=== PATIENT | female | born 1960 | race Caucasian/White ===

== ENCOUNTER 2016-07-03 10:26 | Emergency (ER) | payer OTHER, BC ==
[~2016-07-03] VITALS: Ht 154.9 cm; Wt 90.7 kg
[2016-07-03 10:26] VITALS: BP 146/83
[~2016-07-03 10:26] MED LIST: LEVA500T PO; MOBI15TA PO; NORCOTAB PO; ULTR37.52 PO
[2016-07-03] MEDS ORDERED: LEVO25TA5 PO (10:32)
[2016-07-03] MEDS ORDERED: TRAM50TA2 PO (10:32)
[2016-07-03] MEDS ORDERED: NABU50TA PO (10:32)
== END 2016-07-03 11:44 | disposition home or self-care (01) ==
LOC: M ED 11:06
DX: S96.911A Strain of unspecified muscle and tendon at ankle and foot level, right foot, initial encounter (principal); W19.XXXA Unspecified fall, initial encounter; Y92.89 Other specified places as the place of occurrence of the external cause; Y93.89 Activity, other specified; Y99.8 Other external cause status; M54.5 Low back pain; F33.9 Major depressive disorder, recurrent, unspecified; E07.9 Disorder of thyroid, unspecified; Z87.442 Personal history of urinary calculi; Z79.899 Other long term (current) drug therapy

== ENCOUNTER 2016-10-03 11:26 | Outpatient (CLI) | payer BC ==
[~2016-10-03] VITALS: Ht 154.9 cm; Wt 92.1 kg
[~2016-10-03 11:26] MED LIST changes: +LEVA1TAB2 PO; -LEVA500T PO; +LEVO25TA5 PO; +NABU500T PO; +TIZA4CAP3 PO; +TRAM50TA2 PO; -ULTR37.52 PO; +ULTR37.54 PO
[2016-10-03] MEDS ORDERED: NS 1,000 ML IV ONE (11:30)
[2016-10-03] MEDS ORDERED: LIDOCAINE 2% INJ 100 MG/5 ML SDV (FOR ANES.) As Ordered ONE (12:24)
[2016-10-03] MEDS ORDERED: PROPOFOL 500 MG/50 ML VIAL As Ordered ONE (12:24)
--- NOTE | 2016-10-03 12:44 | ROOR ---
Patient Name: Juju Jung Procedure Date: 10/03/2016 12:22 PM Date of : 1960 Age: 56 Room: [facility] Gender: Female Note Status: Finalized Procedure: Total Colonoscopy to Cecum Indications: Screening for colorectal malignant neoplasm Providers: Joao Lang MD Referring MD: SARI ROJAS DO Requesting Provider: Medicines: Monitored Anesthesia Care Complications: No immediate complications. Procedure: Pre-Anesthesia Assessment: - The heart rate, respiratory rate, oxygen saturations, blood pressure, adequacy of pulmonary ventilation, and response to care were monitored throughout the procedure. The Colonoscope was introduced through the anus and advanced to the cecum, identified by appendiceal orifice and ileocecal valve. The colonoscopy was performed without difficulty. The patient tolerated the procedure well. The quality of the bowel preparation was excellent. Findings: The perianal and digital rectal examinations were normal. Internal hemorrhoids were found during retroflexion. The hemorrhoids were mild and small. Multiple small and large-mouthed diverticula were found in the recto-sigmoid colon, sigmoid colon and descending colon. The exam was otherwise without abnormality on direct and retroflexion views. Impression: - Internal hemorrhoids. - Diverticulosis in the recto-sigmoid colon, in the sigmoid colon and in the descending colon. - The examination was otherwise normal on direct and retroflexion views. - No specimens collected. - The exam was otherwise normal to the cecum. Recommendation: - Patient has a contact number available for emergencies. The signs and symptoms of potential delayed complications were discussed with the patient. Return to normal activities tomorrow. Written discharge instructions were provided to the patient. - High fiber diet. - Discharge patient to home. - Continue present medications. - Repeat colonoscopy in 10 years for screening purposes. - Return to referring physician. - The findings and recommendations were discussed with the patient's family. Joao Lang MD Joao Lang MD 10/03/2016 12:43:53 PM This report has been signed electronically. Number of Addenda: 0 Note Initiated On: 10/03/2016 12:22 PM Estimated Blood Loss: Estimated blood loss: none.
[2016-10-03 12:57] VITALS: BP 125/76
== END 2016-10-03 13:05 | disposition home or self-care (01) ==
LOC: M OPP 11:26
PROVIDERS: ATTEND Internal Medicine Gastroenterology
DX: Z12.31 Encounter for screening mammogram for malignant neoplasm of breast (principal); K64.8 Other hemorrhoids; K57.30 Diverticulosis of large intestine without perforation or abscess without bleeding; E03.9 Hypothyroidism, unspecified; E66.9 Obesity, unspecified; E78.5 Hyperlipidemia, unspecified; R00.2 Palpitations; Z79.899 Other long term (current) drug therapy

== ENCOUNTER 2018-04-09 07:20 | Day surgery (SDC) | payer BC ==
[~2018-04-09] VITALS: Ht 156.2 cm; Wt 85.6 kg
[~2018-04-09 07:20] MED LIST changes: +CYCL10TA PO; +LEVO75TA4 PO; +NABU-126 PO; -NABU500T PO; +TIZA4CAP PO; -TIZA4CAP3 PO
[2018-04-09] MEDS ORDERED: LR 1,000 ML IV ONE (09:30)
[2018-04-09] MEDS ORDERED: BUPIVACAINE/EPIN 0.25% 30 ML VIAL As Ordered ONE (09:48)
[2018-04-09] MEDS ORDERED: LIDOCAINE 2% INJ 100 MG/5 ML SDV (FOR ANES.) As Ordered ONE (10:22)
[2018-04-09] MEDS ORDERED: ROCURONIUM BROMIDE 50 MG/5 ML VIAL As Ordered ONE (10:22)
[2018-04-09] MEDS ORDERED: MIDAZOLAM INJ 2 MG/2 ML VIAL (J2250) As Ordered ONE (10:22)
[2018-04-09] MEDS ORDERED: PROPOFOL 200 MG/20 ML VIAL As Ordered ONE (10:22)
[2018-04-09] MEDS ORDERED: KETOROLAC 60 MG/2 ML VIAL (J1885) As Ordered ONE (10:22)
[2018-04-09] MEDS ORDERED: SUGAMMADEX SODIUM 500 MG/5 ML VIAL (BRIDION) As Ordered ONE (10:22)
[2018-04-09] MEDS ORDERED: ONDANSETRON 4MG/2ML VIAL (J2405) As Ordered ONE (10:22)
[2018-04-09] MEDS ORDERED: dexameTHASONE 4 MG/ML 1ML VIAL (J1100) As Ordered ONE (10:22)
[2018-04-09] MEDS ORDERED: fentaNYL 250 MCG/5 ML INJECTION (J3010) As Ordered ONE (10:22)
[2018-04-09] MEDS ORDERED: ePHEDrine SULFATE 25 MG/5 ML(5MG/ML) SYRINGE As Ordered ONE (10:27)
[2018-04-09] MEDS: fentaNYL 100 MCG/2 ML INJECTION (J3010) IV PRN ×5 (11:14→11:42)
[2018-04-09] MEDS ORDERED: fentaNYL 100 MCG/2 ML INJECTION (J3010) As Ordered ONE (11:23)
[2018-04-09] MEDS ORDERED: PERCOCET 5MG/325MG TAB As Ordered ONE (11:23)
[2018-04-09] MEDS: PERCOCET 5MG/325MG TAB PO PRN ×2 (11:24→11:56)
[2018-04-09] MEDS ORDERED: LR 1,000 ML IV SCH (11:30)
[2018-04-09] MEDS ORDERED: NORCO, ANEXSIA 5/325MG TABLET (HYDROcodone/ACETAMINOPHEN) PO PRN (11:30)
[2018-04-09] MEDS ORDERED: ONDANSETRON 4MG/2ML VIAL (J2405) IV PRN (11:30)
[2018-04-09] MEDS ORDERED: METHOCARBAMOL INJection 1,000 MG, VIAL MATE ADAPTER 1 EACH in NS 250 ML IV ONE (13:30)
--- NOTE | 2018-04-09 14:20 | ECGEPIP ---
Stationary ECG Study [facility] Test Date: 2018-04-09 Pat Name: DESTINI BERRY Department: Room: - Gender: F Catering Attendant: RADHA : 1960 Requested By: LEAH Brock Order Number: [id number] Reading MD: Norman Ronquillo Measurements Intervals Mobile Rate: 51 P: 41 MD: 157 QRS: 7 QRSD: 91 T: 12 QT: 444 QTc: 409 Interpretive Statements SINUS BRADYCARDIA WITH SINUS ARRHYTHMIA LOW QRS VOLTAGE IN PRECORDIAL LEADS Electronically Signed On 04-09-2018 14:20:41 EST by Norman Ronquillo
[2018-04-09] MEDS ORDERED: diazePAM 5 MG TAB PO ONE (15:15)
--- NOTE | 2018-04-09 16:25 | RO ---
DATE OF PROCEDURE: 04/09/2018 PREOPERATIVE DIAGNOSIS: Symptomatic cholelithiasis. POSTOPERATIVE DIAGNOSIS: Symptomatic cholelithiasis. PROCEDURE: Laparoscopic cholecystectomy. SURGEON: Dr. Elias FLOORING GRADER: None. ANESTHESIA: General. ESTIMATED BLOOD LOSS (EBL): 5. COMPLICATIONS: None. INDICATIONS FOR PROCEDURE: The patient is a 57-year-old female, who presents with right upper quadrant abdominal pain found have symptomatic cholelithiasis. Recommendation to proceed with laparoscopic possible open cholecystectomy. Risks, benefits of procedure not limited but including bleeding, infection, hernia formation, damage to surrounding structure, need further surgery were discussed in detail with the patient. Informed consent was obtained and procedure was planned. DESCRIPTION OF PROCEDURE: The patient brought back to operating room #3. After sufficient sedation, the abdomen was sterilely prepped and draped. Next, time-out was done to confirm proper patient and proper procedure. A stab incision was made in the left lower quadrant. Veress needle was inserted and the abdomen insufflated to 50 mmHg. Next, Veress needle was left in place and a 5 mm umbilical incision was made and a 5 mm Optiview port was used to gain access to the abdomen. Once the abdomen was entered, Veress needle site was examined and there were no signs of any injury. Veress needle was then removed. An 11 mm port was placed subxiphoid and two 5 mm ports in the right upper quadrant. The fundus of gallbladder was then grasped, elevated up towards the right shoulder. Omental adhesions to gallbladder were gently taken down using blunt dissection. The cystic duct and cystic artery were then carefully dissected free using combination of blunt and sharp dissection. Once they were both clearly identified, they were both doubly clipped and cut. The gallbladder was then removed from the gallbladder fossa using electrocautery. Once the gallbladder was out, it was taken out through a subxiphoid port site in a 10 mm Endo Catch bag. Due to a large amount of stones, the bag burst open removing from the abdomen leaking a few of the stones inside the right upper quadrant. These were removed using combination of suction and a grasper. Once that was completed, the right upper quadrant was examined and there were no signs of any bleeding. The abdomen was then desufflated. Skin incisions were closed with #4-0 Vicryl subcuticular sutures. The abdomen was cleaned and dried. Steri-Strips, 4 x 4 and tape were applied, thus ending procedure.
[2018-04-09 16:35] VITALS: BP 133/81
== END 2018-04-09 16:45 | disposition home or self-care (01) ==
LOC: M SDC 07:20
PROVIDERS: ATTEND Surgery
DX: K80.18 Calculus of gallbladder with other cholecystitis without obstruction (principal); E03.9 Hypothyroidism, unspecified; Z79.899 Other long term (current) drug therapy; L40.8 Other psoriasis
CPT/HCPCS: 47562; 88304; 93005; J1100; J1885; J2250; J2405; J2800; J3010

== ENCOUNTER → 2021-02-14 | Outpatient (REF) ==
[~2021-02-14] MED LIST changes: +CYCL-707 PO; -CYCL10TA PO; +HYDR-3715 PO; -NABU-126 PO; +NABU-71 PO; -NORCOTAB PO
== END ==
LOC: M LABSMTC 13:13
PROVIDERS: ATTEND Family Medicine
DX: Z11.52 Encounter for screening for COVID-19 (principal); Z20.822 Contact with and (suspected) exposure to COVID-19

== ENCOUNTER 2021-11-06 15:23 | Emergency (ER) | payer BC ==
[~2021-11-06 15:23] MED LIST changes: +ULTR1TAB PO; -ULTR37.54 PO
[2021-11-06] MEDS ORDERED: NS 1,000 ML IV ONE (15:50)
[2021-11-06] MEDS ORDERED: HYDROMORPHONE HCL 0.5 MG/ 0.5 ML SYRINGE (J1170 PER 1) IV PRN (15:50)
[2021-11-06] MEDS ORDERED: ONDANSETRON 4MG 2ML VIAL IV ONE (15:50)
[2021-11-06 16:40] LABS: BASO # 0.1 10^3/uL (0.0-0.2); BASO % 0.8 % (0.0-1.0); EOS # 0.3 10^3/uL (0.0-0.5); EOS % 2.8 % (0.0-3.0); HEMOGLOBIN 14.1 g/dl (12.0-15.5); LYMPH # 1.2 10^3/uL (1.5-5.0); LYMPH % 11.9 % (24.0-44.0); MEAN CORPUSCULAR HEMOGLOBIN 30.2 pg (27.0-33.0); MEAN CORPUSCULAR HGB CONC 32.8 g/dl (32.0-36.5); MEAN CORPUSCULAR VOLUME 92.1 fl (80.0-96.0); MONO # 0.6 10^3/uL (0.0-0.8); MONO % 6.4 % (2.0-8.0); NEUTROPHILS # 7.6 10^3/uL (1.5-8.5); NEUTROPHILS % 77.9 % (36.0-66.0); PLATELET COUNT, AUTOMATED 336 10^3/uL (150-450); RED BLOOD COUNT 4.67 10^6/uL (4.00-5.40); WHITE BLOOD COUNT 9.8 10^3/uL (4.0-10.0)
[2021-11-06] MEDS ORDERED: ISOVUE-370 76% 100ML VIAL As Ordered ONE (16:50)
[2021-11-06 17:15] LABS: ALBUMIN 4.2 GM/DL (3.2-5.2); ALT/SGPT 26 U/L (12-78); BILIRUBIN,DIRECT < 0.1 MG/DL (0.0-0.2); BILIRUBIN,TOTAL 0.4 MG/DL (0.2-1.0); BLOOD UREA NITROGEN 18 MG/DL (7-18); CALCIUM LEVEL 8.9 MG/DL (8.8-10.2); CARBON DIOXIDE LEVEL 26 MEQ/L (21-32); CHLORIDE LEVEL 108 MEQ/L (98-107); CREATININE FOR GFR 0.89 MG/DL (0.55-1.30); GLOMERULAR FILTRATION RATE > 60.0 (>45); GLUCOSE, FASTING 130 MG/DL (70-100); LIPASE 147 U/L (73-393); POTASSIUM SERUM 5.1 MEQ/L (3.5-5.1); SODIUM LEVEL 139 MEQ/L (136-145); TOTAL PROTEIN 7.9 GM/DL (6.4-8.2)
[2021-11-06] MEDS ORDERED: PERC5TAB12 PO (19:27)
[2021-11-06] MEDS ORDERED: KETO10TAB PO (19:27)
[2021-11-06] MEDS ORDERED: ONDA4TAB6 PO (19:27)
[2021-11-06 21:16] VITALS: BP 133/70
== END 2021-11-06 21:41 | disposition home or self-care (01) ==
LOC: M ED 15:23 → EDBD 15:23 → M ED 21:41
DX: N20.1 Calculus of ureter (principal)
CPT/HCPCS: 74176; 74177; 80047; 80048; 80076; 81000; 81015; 83605; 83690; 85025; 93041; 96374; 99285; J1170; J2405; Q9967

== ENCOUNTER → 2021-11-17 | Outpatient (REF) ==
[~2021-11-17] MED LIST changes: +KETO10TAB PO; +ONDA4TAB6 PO; +PERC5TAB12 PO
== END ==
LOC: M LABSMTC 11:00
PROVIDERS: ATTEND Family Medicine
DX: Z20.822 Contact with and (suspected) exposure to COVID-19 (principal)

== ENCOUNTER → 2022-01-27 | Outpatient (REF) | payer BC ==
[2022-01-27 15:25] LABS: APPEARANCE, URINE MANUAL HAZY (CLEAR); BILIRUBIN, URINE MANUAL NEGATIVE (NEGATIVE); BLOOD URINE MANUAL POSITIVE (NEGATIVE); COLOR, URINE MANUAL YELLOW (YELLOW); GLUCOSE, URINE (UA) MANUAL NEGATIVE (NEGATIVE); KETONE, URINE MANUAL 3+ mg/dL (NEGATIVE); LEUKOCYTE ESTERASE, URINE MAN TRACE (NEGATIVE); NITRITE, URINE MANUAL NEGATIVE (NEGATIVE); PROTEIN, URINE MANUAL 1+ mg/dL (NEGATIVE); SPECIFIC GRAVITY,URINE MANUAL 1.025 (1.002-1.035); UROBILINOGEN, URINE MANUAL NORMAL (NORMAL)
[2022-01-27 15:41] LABS: BACTERIA, URINE LARGE AMOUNT; HYALINE CAST, URINE 0-1 /lpf (0-1); MUCUS, URINE MOD AMOUNT (NEGATIVE); SQUAMOUS EPITHELIAL CELL URINE LARGE AMOUNT /hpf (SMALL AMT); WBC, URINE 15-20 /hpf (0-3)
== END ==
LOC: M LAB REF 12:38
PROVIDERS: ATTEND Physician Assistant Medical
DX: N39.0 Urinary tract infection, site not specified (principal)

== ENCOUNTER → 2022-02-06 | Outpatient (REF) | payer BC ==
[2022-02-06 19:42] LABS: APPEARANCE, URINE MANUAL CLEAR (CLEAR); COLOR, URINE MANUAL YELLOW (YELLOW)
[2022-02-06 19:43] LABS: BILIRUBIN, URINE MANUAL NEGATIVE (NEGATIVE); BLOOD URINE MANUAL NEGATIVE (NEGATIVE); GLUCOSE, URINE (UA) MANUAL NEGATIVE (NEGATIVE); KETONE, URINE MANUAL NEGATIVE (NEGATIVE); NITRITE, URINE MANUAL NEGATIVE (NEGATIVE); PROTEIN, URINE MANUAL NEGATIVE (NEGATIVE); UROBILINOGEN, URINE MANUAL NORMAL (NORMAL)
[2022-02-06 19:44] LABS: LEUKOCYTE ESTERASE, URINE MAN NEGATIVE (NEGATIVE)
== END ==
LOC: M LAB REF 17:29
PROVIDERS: ATTEND Physician Assistant
DX: N39.0 Urinary tract infection, site not specified (principal)

== ENCOUNTER 2022-04-09 23:29 | Emergency (ER) | payer BC ==
[~2022-04-09] VITALS: Ht 154.9 cm; Wt 92.7 kg
[2022-04-09 23:29] VITALS: BP 134/79
== END 2022-04-10 02:09 | disposition left against medical advice (07) ==
LOC: M ED 23:29
DX: Z53.21 Procedure and treatment not carried out due to patient leaving prior to being seen by health care provider (principal)

== ENCOUNTER → 2022-06-23 | Outpatient (CLI) | payer BC, OTHER ==
[~2022-06-23] MED LIST changes: +**SFHN** LIDOCAINE 1% MDV 20ML VIAL ONE; +**SFHN** methylPREDNISolone 40MG 1ML VIAL ONE; +ISOVUE-300 61% 100ML VIAL ONE
== END ==
LOC: M PLAIMG 13:12
PROVIDERS: ATTEND Physician Assistant
DX: M19.071 Primary osteoarthritis, right ankle and foot (principal)
CPT/HCPCS: 20605; 77002; J2920; Q9967

== ENCOUNTER → 2022-11-24 | Outpatient (CLI) | payer OTHER ==
[~2022-11-24] MED LIST changes: -**SFHN** LIDOCAINE 1% MDV 20ML VIAL ONE; -**SFHN** methylPREDNISolone 40MG 1ML VIAL ONE; +ISOVUE-300 61% 100ML VIAL As Ordered ONE; -ISOVUE-300 61% 100ML VIAL ONE; +LIDOCAINE 1% MDV 20ML VIAL As Ordered ONE; +PROHANCE 279.3MG/ML 5ML VIAL As Ordered ONE
== END ==
LOC: M RAD 06:42
PROVIDERS: ATTEND Physician Assistant
DX: S63.502D Unspecified sprain of left wrist, subsequent encounter (principal)
CPT/HCPCS: 25246; 73223; 77002; A9576; Q9967

== ENCOUNTER 2023-01-08 13:46 | Emergency (ER) | payer OTHER ==
[~2023-01-08] VITALS: Ht 154.9 cm; Wt 95.4 kg
[~2023-01-08 13:46] MED LIST changes: -ISOVUE-300 61% 100ML VIAL As Ordered ONE; -LIDOCAINE 1% MDV 20ML VIAL As Ordered ONE; -PROHANCE 279.3MG/ML 5ML VIAL As Ordered ONE
[2023-01-08] MEDS ORDERED: DULO1CAP6 (14:11)
[2023-01-08] MEDS ORDERED: AMIT25TA19 (14:11)
[2023-01-08] MEDS ORDERED: LEVO50TA5 (14:11)
[2023-01-08] MEDS ORDERED: DICL75TA (14:11)
[2023-01-08 17:43] VITALS: BP 144/80; TEMP 97.8; O2SAT 97
[2023-01-08] MEDS ORDERED: ACETAMINOPHEN 500 MG TAB PO ONE (18:05)
[2023-01-08] MEDS ORDERED: METH-1164 PO (19:13)
== END 2023-01-08 19:33 | disposition home or self-care (01) ==
LOC: M ED 13:46
DX: S46.811A Strain of other muscles, fascia and tendons at shoulder and upper arm level, right arm, initial encounter (principal); X50.1XXA Overexertion from prolonged static or awkward postures, initial encounter; Y92.121 Bathroom in nursing home as the place of occurrence of the external cause; Y93.F9 Activity, other caregiving; Y99.0 Civilian activity done for income or pay; M12.811 Other specific arthropathies, not elsewhere classified, right shoulder; M54.9 Dorsalgia, unspecified; Z87.442 Personal history of urinary calculi

== ENCOUNTER → 2023-04-09 | Outpatient (RCR) | payer OTHER ==
[~2023-04-09] MED LIST changes: +AMIT25TA19; +DICL75TA; +DULO1CAP6; +LEVO50TA5; +METH-1164 PO
== END ==
LOC: M PT 03-12 12:10
PROVIDERS: ATTEND Physician Assistant
DX: M25.511 Pain in right shoulder (principal)

== ENCOUNTER → 2023-05-07 | Outpatient (CLI) | payer OTHER | LOC: M PLARAD 09:16 | PROVIDERS: ATTEND Physician Assistant | DX: Z04.2 Encounter for examination and observation following work accident (principal); M26.81 Anterior soft tissue impingement ==

== ENCOUNTER → 2023-10-02 | Outpatient (CLI) | payer BC, SELFPAY ==
[~2023-10-02] MED LIST changes: +ONDA-282 PO; -ONDA4TAB6 PO
== END ==
LOC: M WHC 08:41
PROVIDERS: ATTEND Internal Medicine
DX: Z12.31 Encounter for screening mammogram for malignant neoplasm of breast (principal)

== ENCOUNTER → 2024-05-26 | Outpatient (CLI) | payer BC | LOC: M RAD 15:02 | PROVIDERS: ATTEND Physician Assistant | DX: M19.072 Primary osteoarthritis, left ankle and foot (principal) ==

== ENCOUNTER → 2024-06-07 | Outpatient (CLI) | payer BC | LOC: M SOG 07:54 | PROVIDERS: ATTEND Physician Assistant | DX: M25.511 Pain in right shoulder (principal); Z53.9 Procedure and treatment not carried out, unspecified reason ==

== ENCOUNTER 2024-12-09 10:45 | Emergency (ER) | payer BC ==
[~2024-12-09] VITALS: Ht 157.5 cm; Wt 89.7 kg
[2024-12-09] MEDS ORDERED: CYCL-707 (11:00)
[2024-12-09] MEDS ORDERED: MELO15TA28 (11:00)
[2024-12-09] MEDS: KETOROLAC 30 MG/ML 1 ML VIAL IM ONE (13:04)
[2024-12-09 13:45] VITALS: BP 161/73; TEMP 97.4; O2SAT 96
== END 2024-12-09 13:45 | disposition home or self-care (01) ==
LOC: M ED 10:45
DX: S52.572A Other intraarticular fracture of lower end of left radius, initial encounter for closed fracture (principal); S52.612A Displaced fracture of left ulna styloid process, initial encounter for closed fracture; Y92.019 Unspecified place in single-family (private) house as the place of occurrence of the external cause; Y93.9 Activity, unspecified; Y99.9 Unspecified external cause status; W01.0XXA Fall on same level from slipping, tripping and stumbling without subsequent striking against object, initial encounter; E03.9 Hypothyroidism, unspecified; F41.9 Anxiety disorder, unspecified; F32.A Depression, unspecified; Z79.899 Other long term (current) drug therapy
CPT/HCPCS: 73110; 96372; 99283; J1885

== ENCOUNTER → 2024-12-15 | Outpatient (CLI) | payer BC ==
[~2024-12-15] MED LIST changes: +CYCL-707; +MELO15TA28; +OXYC1TAB23 PO
== END ==
LOC: M RAD 16:58
PROVIDERS: ATTEND Orthopaedic Surgery Hand Surgery
DX: M25.532 Pain in left wrist (principal); S52.502A Unspecified fracture of the lower end of left radius, initial encounter for closed fracture; R79.89 Other specified abnormal findings of blood chemistry; S52.612A Displaced fracture of left ulna styloid process, initial encounter for closed fracture; X58.XXXA Exposure to other specified factors, initial encounter; Y92.9 Unspecified place or not applicable; Y93.9 Activity, unspecified; Y99.9 Unspecified external cause status; M79.89 Other specified soft tissue disorders

== ENCOUNTER 2024-12-23 08:03 | Day surgery (SDC) | payer BC ==
[~2024-12-23] VITALS: Ht 157.5 cm; Wt 90.6 kg
[2024-12-23] MEDS: ceFAZolin SOD 2 GM IV ONCE IV ONE (06:00)
[~2024-12-23 08:03] MED LIST changes: +ACETAMINOPHEN 1000MG/100ML IV BAG As Ordered ONE; +KETOROLAC 30 MG/ML 1 ML VIAL As Ordered ONE; +LIDOCAINE 2% 100 MG/5 ML SDV (FOR ANES.) As Ordered ONE; +MIDAZOLAM INJ 2 MG/2 ML VIAL As Ordered ONE; +ONDANSETRON 4MG/2ML VIAL As Ordered ONE; -OXYC1TAB23 PO; +dexAMETHasone 4 MG/ML 1 ML VIAL As Ordered ONE
[2024-12-23] MEDS ORDERED: LR 1,000 ML IV SCH ×2 (08:35→12:00)
[2024-12-23] MEDS: MIDAZOLAM INJ 2 MG/2 ML VIAL IV PRN (09:22)
[2024-12-23] MEDS: BUPivacaine LIPOSOME/PF 133 MG/10 ML VIAL PN ONE (09:23)
[2024-12-23] MEDS: LIDOCAINE 1% SDV 5 ML VIAL PN ONE (09:23)
[2024-12-23] MEDS ORDERED: GLYCOPYRROLATE INJ 0.2 MG/ML 2 ML VIAL As Ordered ONE (10:43)
[2024-12-23] MEDS ORDERED: OXYC1TAB23 PO (12:00)
[2024-12-23] MEDS: HYDROMORPHONE HCL 0.5 MG/0.5 ML SYRINGE IV PRN (12:21)
[2024-12-23 14:23] VITALS: BP 128/79; TEMP 97.5; O2SAT 96
== END 2024-12-23 14:35 | disposition home or self-care (01) ==
LOC: M SDC 08:03
PROVIDERS: ATTEND Orthopaedic Surgery Hand Surgery
DX: S52.502A Unspecified fracture of the lower end of left radius, initial encounter for closed fracture (principal); S52.612A Displaced fracture of left ulna styloid process, initial encounter for closed fracture; W19.XXXA Unspecified fall, initial encounter; Y93.9 Activity, unspecified; E03.9 Hypothyroidism, unspecified; F41.9 Anxiety disorder, unspecified; F32.A Depression, unspecified; Z79.899 Other long term (current) drug therapy; Z79.890 Hormone replacement therapy
CPT/HCPCS: 25609; 25652; 76000; 93005; C1713; J0131; J0665; J0666; J0688; J1100; J1171; J1596; J1885; J2250; J2405; J3010

== ENCOUNTER → 2025-01-09 | Outpatient (CLI) | payer BC ==
[~2025-01-09] MED LIST changes: -ACETAMINOPHEN 1000MG/100ML IV BAG As Ordered ONE; -KETOROLAC 30 MG/ML 1 ML VIAL As Ordered ONE; -LIDOCAINE 2% 100 MG/5 ML SDV (FOR ANES.) As Ordered ONE; -MIDAZOLAM INJ 2 MG/2 ML VIAL As Ordered ONE; -ONDANSETRON 4MG/2ML VIAL As Ordered ONE; +OXYC1TAB23 PO; -dexAMETHasone 4 MG/ML 1 ML VIAL As Ordered ONE
== END ==
LOC: M SOG 07:43
PROVIDERS: ATTEND Physician Assistant
DX: S52.502A Unspecified fracture of the lower end of left radius, initial encounter for closed fracture (principal); W18.30XA Fall on same level, unspecified, initial encounter; Y92.009 Unspecified place in unspecified non-institutional (private) residence as the place of occurrence of the external cause

== ENCOUNTER → 2025-01-20 | Outpatient (CLI) | payer BC | LOC: M WHC 14:12 | PROVIDERS: ATTEND Internal Medicine | DX: Z12.31 Encounter for screening mammogram for malignant neoplasm of breast (principal); R92.323 Mammographic fibroglandular density, bilateral breasts ==

== ENCOUNTER → 2025-01-24 | Outpatient (CLI) | payer BC | LOC: M SOG 07:45 | PROVIDERS: ATTEND Physician Assistant | DX: M25.532 Pain in left wrist (principal) ==